=== PATIENT | female | born 1960 | race African-American/Black ===

== ENCOUNTER → 2017-10-06 | Day surgery (SDC) | payer BC ==
[~2017-10-06] MED LIST: BUPIVACAINE HCL 0.5% 10ML MPF VIAL INJ ONE; CEFAZOLIN SOD 1 GM VIAL ONE; DEXAMETHASONE SOD PHOS INJ 4 MG/ML VIAL ONE; FENTANYL CITRATE/PF 100MCG/2 ML INJ ONE; HYDROCODONE COUGH PO; LIDOCAINE HCL 1% LOCAL INJ 20 ML VIAL ONE; LIDOCAINE HCL 2% LOCAL INJ 5 ML SDV VIAL INJ ONE; LOSARTAN POTASS25 MG PO; MIDAZOLAM HCL 2 MG/2 ML VIAL ONE; MONTELUKAST SOD10 MG PO; MUPIROCIN 2% OINT 22 GM TUBE ONE; ONDANSETRON HCL INJ 2 MG/ML VIAL ONE; PROPOFOL IV EMULSION 10 MG/ML 20 ML VIAL ONE; SEVOFLURANE INHAL SOLN 250 ML PEN BTL ONE; [UNRECOGNIZED DRUG - REMARK] PO
--- NOTE | 2017-10-06 13:14 | Operative Report ---
DATE OF PROCEDURE: October 06, 2017 PREOPERATIVE DIAGNOSIS: Right wrist volar ganglion cyst. POSTOPERATIVE DIAGNOSIS: Right wrist volar ganglion cyst, pending final pathology. PROCEDURE: Excision of right wrist volar ganglion cyst. ANESTHESIA: General. HISTORY: The patient is a 57-year-old, right-hand dominant female with a 3 to 4 cm cystic mass on the right wrist volar region. On the radial side of the mass, the radial artery is palpable, but the cyst itself is nonpulsatile. The risks, benefits and alternatives were discussed with the patient. She is prepared to undergo the procedure outlined. DETAILS OF PROCEDURE: Patient was marked preoperatively in the holding area. She was brought to the operating theater. After the induction of adequate general anesthesia, she was prepped and draped in a supine position. A time out was performed. A longitudinal incision was marked out over the prominence of the cyst and extended both proximally and distally for a centimeter or two. The right upper extremity was exsanguinated, and the tourniquet was inflated to a pressure of 250 mmHg. The incision was made through the skin and subcutaneous tissues. Venous tributaries were controlled with bipolar cautery. Immediately on the radial aspect of the wound, the radial artery and the venae comitantes were identified. The artery was dissected off of the cyst and proximally, and a vessel loop was placed around it and used for traction. At this point, the FCR tendon was identified on the medial aspect of the cyst. Using the artery and the tendon as a guide, the cyst was dissected off the volar forearm fascia from proximal to distal. Several venous tributaries were encountered, and these were coapted with the bipolar cautery. At the level of the scaphotrapezial joint, the cyst and its communicating stalk were then excised and sent for permanent pathologic examination. The rent in the joint capsule was fulgurated using the bipolar cautery. The wound was irrigated with bacteriostatic saline and closed with 5-0 nylon in interrupted horizontal mattress fashion. Marcaine field block was performed at the operative site. The tourniquet was deflated, and all the fingers pinked up nicely. A sterile bulking conforming bandage was applied to the wrist and hand. Patient tolerated the procedure well and was brought to the recovery room in satisfactory condition and discharged with a postoperative instruction sheet as well as a followup appointment. Job#: [id number]
== END | disposition home or self-care (01) ==
LOC: OR 05:51
PROVIDERS: ATTEND Plastic Surgery
DX: M67.431 Ganglion, right wrist (principal); I10 Essential (primary) hypertension; I45.10 Unspecified right bundle-branch block; Z01.810 Encounter for preprocedural cardiovascular examination
CPT/HCPCS: 25111; 88304; 93005; J0690; J1100; J2001 ×2; J2250; J2405

== ENCOUNTER → 2020-06-12 | Day surgery (SDC) | payer SELFPAY ==
[~2020-06-12] MED LIST changes: +ACETAMINOPHEN/CODEINE 300MG - 30MG TAB ONE; -BUPIVACAINE HCL 0.5% 10ML MPF VIAL INJ ONE; +BUPIVACAINE HCL 0.5% INJ 30 ML VIAL INJ ONE; -CEFAZOLIN SOD 1 GM VIAL ONE; +CEFAZOLIN SOD 1 GM/NS 50ML 50 ML IV ONE; +KETOROLAC TROMETHAMINE 30 MG/ML VIAL ONE; -LIDOCAINE HCL 1% LOCAL INJ 20 ML VIAL ONE; -ONDANSETRON HCL INJ 2 MG/ML VIAL ONE; +ONDANSETRON HCL INJ 2MG/ML 2ML 2 MG/ML VIAL ONE
[2020-06-12 08:37] VITALS: BP 125/83
== END | disposition home or self-care (01) ==
LOC: OR 05:22
PROVIDERS: ATTEND Plastic Surgery
DX: M67.431 Ganglion, right wrist (principal); I10 Essential (primary) hypertension; F41.9 Anxiety disorder, unspecified; R00.0 Tachycardia, unspecified; Z01.810 Encounter for preprocedural cardiovascular examination; Z01.812 Encounter for preprocedural laboratory examination; Z11.59 Encounter for screening for other viral diseases
CPT/HCPCS: 25112; 88304; 93005; J0690; J1100; J1885; J2001; J2250; J2405; J2704; J3010; U0002